=== PATIENT | female | born 1960 | race Caucasian/White ===

== ENCOUNTER → 2016-03-27 | Outpatient (CLI) | payer SELFPAY ==
[~2016-03-27] MED LIST: AMOXICILLIN500 MG PO; ASPIRIN81 M2 PO; CEPHALEXIN500 MG PO; ENDOCET 5-3251 EACH PO; FISH OIL 1,0001 EAC7 PO; IMDUR30 MG PO; KADIAN30 MG PO; LIDOCAINE20 MG/1 M5 PO; LIPITOR10 MG PO; LISINOPRIL-HCT1 EACH PO; LISINOPRIL2.5 MG PO; METOPROLOL SUCC50 MG PO; MORPHINE SULFAT60 MG PO; MS CONTIN,ORAMO60 MG PO; NAPROSYN500 MG PO; NAPROXEN500 MG PO; NICOTINE PATCH1 EAC2 TD; NITROSTAT0.4 MG SL; NORCO 5/3251 TABLET PO; NORVASC5 MG PO; PEN-VEE K,VEET500 MG PO; PERIDEX1 ML MM; PLAVIX75 MG PO; PREDNISONE20 MG PO; PROVENTIL,2.5 MG/0.5 AEROSOL; SPIRIVA RESPIMAT4 GM IH; ULTRAM50 MG PO
== END | disposition home or self-care (01) ==
LOC: RAD 15:10
DX: J20.9 Acute bronchitis, unspecified (principal); R07.89 Other chest pain
CPT/HCPCS: 71020; 71120

== ENCOUNTER 2016-06-24 03:09 | Emergency (ER) | payer SELFPAY ==
[~2016-06-24] VITALS: Ht 162.6 cm; Wt 94.7 kg
[2016-06-24] MEDS ORDERED: PEN-VEE K,VEET500 MG PO (03:45)
[2016-06-24 04:06] VITALS: BP 123/77
== END 2016-06-24 04:08 | disposition home or self-care (01) ==
LOC: EME 03:09
DX: K05.00 Acute gingivitis, plaque induced (principal); K04.7 Periapical abscess without sinus
CPT/HCPCS: 99281; 99283

== ENCOUNTER 2016-07-24 16:02 | Emergency (ER) | payer SELFPAY ==
[~2016-07-24] VITALS: Ht 165.1 cm; Wt 93.8 kg
[2016-07-24] MEDS ORDERED: CLEOCIN300 MG PO (17:39)
[2016-07-24 18:01] VITALS: BP 115/81
== END 2016-07-24 18:01 | disposition home or self-care (01) ==
LOC: EME 16:02 → EXP 17:45
DX: K08.89 Other specified disorders of teeth and supporting structures (principal); F17.200 Nicotine dependence, unspecified, uncomplicated; I10 Essential (primary) hypertension; I25.2 Old myocardial infarction; Z79.82 Long term (current) use of aspirin; Z79.02 Long term (current) use of antithrombotics/antiplatelets
CPT/HCPCS: 99281; 99283

== ENCOUNTER 2016-07-29 01:02 | Emergency (ER) | payer SELFPAY ==
[~2016-07-29] VITALS: Ht 162.6 cm; Wt 94.4 kg
[~2016-07-29 01:02] MED LIST changes: +CLEOCIN300 MG PO
[2016-07-29 02:30] VITALS: BP 106/74
== END 2016-07-29 02:31 | disposition home or self-care (01) ==
LOC: EME 01:02
PROC: 3E0T3BZ Introduction of Anesthetic Agent into Peripheral Nerves and Plexi, Percutaneous Approach (ICD-10-PCS; principal; 2016-07-29)
DX: K08.89 Other specified disorders of teeth and supporting structures (principal); Z79.891 Long term (current) use of opiate analgesic; Z79.82 Long term (current) use of aspirin; Z79.02 Long term (current) use of antithrombotics/antiplatelets; F17.200 Nicotine dependence, unspecified, uncomplicated
CPT/HCPCS: 99281; 99283

== ENCOUNTER 2016-07-30 21:25 | Emergency (ER) | payer SELFPAY ==
[~2016-07-30] VITALS: Ht 162.6 cm; Wt 93.0 kg
[2016-07-30 22:37] VITALS: BP 103/73
== END 2016-07-30 22:37 | disposition home or self-care (01) ==
LOC: EME 21:25
PROC: 3E0T3BZ Introduction of Anesthetic Agent into Peripheral Nerves and Plexi, Percutaneous Approach (ICD-10-PCS; principal; 2016-07-30)
DX: K08.89 Other specified disorders of teeth and supporting structures (principal)
CPT/HCPCS: 99281; 99283

== ENCOUNTER 2016-08-09 00:51 | Emergency (ER) | payer SELFPAY ==
[~2016-08-09] VITALS: Ht 162.6 cm; Wt 95.3 kg
[2016-08-09] MEDS ORDERED: NORVASC10 MG PO (01:08)
[2016-08-09 02:13] VITALS: BP 114/72
== END 2016-08-09 02:13 | disposition home or self-care (01) ==
LOC: EME 00:51
DX: K08.89 Other specified disorders of teeth and supporting structures (principal); G89.29 Other chronic pain
CPT/HCPCS: 99281; 99283; J3010

== ENCOUNTER 2016-08-24 15:49 | Emergency (ER) | payer SELFPAY ==
[~2016-08-24] VITALS: Ht 162.6 cm; Wt 93.7 kg
[~2016-08-24 15:49] MED LIST changes: +NORVASC10 MG PO
[2016-08-24 18:00] LABS: EOSINOPHIL (%) 1.9 % (0-5); EOSINOPHIL COUNT 0.1 K/uL (0-0.3); HEMATOCRIT 39.2 % (36.0-46.0); IMMATURE GRANULOCYTE (%) 0.3 % (0.0-0.7); INSTRUMENT ABS NEUTROPHIL CT 4.7 K/uL; LYMPHOCYTE COUNT 1.7 K/uL (1.0-2.8); MCHC 31.9 G/DL (30.0-36.0); MCV 81.7 FL (83-99); MEAN PLAT.VOLUME 9.7 uM^3 (9.5-12.4); MONOCYTE (%) 3.7 % (3-12); MONOCYTE COUNT 0.3 K/uL (0-0.8); NEUTROPHIL (%) 69.3 % (45-76); NEUTROPHIL COUNT 4.7 K/uL (1.8-6.4); PLATELET COUNT 273 K/uL (156-360); RBC DIS.WIDTH-CV 14.7 % (11.8-14.6); RBC DIS.WIDTH-SD 43.5 % (39-53); WHITE BLOOD COUNT 6.8 K/uL (4.1-10.2)
[2016-08-24 18:31] LABS: CHLORIDE 107 mEq/L (99-109); POTASSIUM 4.3 mEq/L (3.7-5.4); SODIUM 139 mEq/L (136-147)
[2016-08-24 18:33] LABS: GLUCOSE 86 mg/dL (70-99)
[2016-08-24 18:34] LABS: ANION GAP 7 MEQ/L (2-14)
[2016-08-24 18:35] LABS: TOTAL BILIRUBIN 0.2 mg/dL (0.0-1.0)
[2016-08-24 18:37] LABS: ALKALINE PHOSPHATASE 98 IU/L (3-129); GFR ESTIMATE (CALCULATED) > 59 mL/min/
[2016-08-24 18:38] LABS: UREA NITROGEN (BUN) 8 mg/dL (9-23)
[2016-08-24 18:40] LABS: LIPASE 30 U/L (1.0-51.0)
[2016-08-24 18:44] LABS: TROP-I INTERPRETATION NEGATIVE; TROPONIN-I < 0.01 ng/mL (0.0-0.30)
[2016-08-24 20:05] LABS: ADD MIUA? NO; BILIRUBIN NEGATIVE; BLOOD NEGATIVE; COLOR STRAW ((YELLOW)); GLUCOSE (STRIP) NEGATIVE; KETONES NEGATIVE; LEUKOCYTES NEGATIVE; NITRITE NEGATIVE; PROTEIN (STRIP) NEGATIVE; SPECIFIC GRAVITY 1.002 (1.000-1.030); UCUL ADDED? NO; UROBILINOGEN 0.2 MG/DL (0.2-1.0)
[2016-08-24 21:46] LABS: TROP-I INTERPRETATION NEGATIVE; TROPONIN-I < 0.01 ng/mL (0.0-0.30)
[2016-08-24 22:40] VITALS: BP 150/75
== END 2016-08-24 22:41 | disposition home or self-care (01) ==
LOC: EME 15:49
PROVIDERS: Emergency Medicine
DX: R07.9 Chest pain, unspecified (principal); N83.201 Unspecified ovarian cyst, right side; R91.1 Solitary pulmonary nodule; F17.200 Nicotine dependence, unspecified, uncomplicated; E78.5 Hyperlipidemia, unspecified; I10 Essential (primary) hypertension; I25.2 Old myocardial infarction
CPT/HCPCS: 71010; 74176; 80053; 81003; 83690; 84484; 85025; 93005; 99281; 99285; J3010; J7030

== ENCOUNTER → 2016-09-08 | Outpatient (CLI) | payer SELFPAY | END | disposition home or self-care (01) | LOC: RAD 09-02 14:00 | DX: R91.1 Solitary pulmonary nodule (principal) | CPT/HCPCS: 71260; 76856 ==

== ENCOUNTER → 2016-11-14 | Outpatient (CLI) | payer SELFPAY | END | disposition home or self-care (01) | LOC: RAD 11-13 14:00 | DX: N83.291 Other ovarian cyst, right side (principal) | CPT/HCPCS: 76856 ==

== ENCOUNTER 2016-12-03 14:54 | Inpatient (IN) | payer OTHER ==
[~2016-12-03] VITALS: Ht 170.2 cm; Wt 97.7 kg
[~2016-12-03 14:54] MED LIST changes: -LISINOPRIL-HCT1 EACH PO; +ZESTORETIC 20-1 EAC1 PO
[2016-12-03] MEDS ORDERED: NEXIUM 24HR20 M2 PO (15:51)
[2016-12-03] MEDS ORDERED: XANAX0.25 MG PO (15:51)
[2016-12-03] MEDS ORDERED: NORCO 7.5/321 TABLET PO (15:53)
[2016-12-03] MEDS ORDERED: GUMMI BEAR MUL1 EACH PO (15:54)
[2016-12-03] MEDS ORDERED: CRESTOR5 MG PO ×2 (15:54→15:55)
[2016-12-03] MEDS ORDERED: ASPIRIN325 MG PO (15:59)
[2016-12-24 10:39] VITALS: BP 115/65
[2016-12-24 11:04] LABS: AMPHETAMINES QUANT VALUE 0 NG/ML; BARBITUATES QUANT VALUE 0 NG/ML; BENZODIAZEPINES, URINE SCREEN POSITIVE (200 ng/mL); MARIJUANA QUANT VALUE 0 NG/ML; PHENCYCLIDINE QUANT VALUE 0 NG/ML
[2016-12-24 16:25] VITALS: BP 132/73
[2016-12-24 19:00] VITALS: BP 105/62
[2016-12-24 22:00] VITALS: BP 101/57
[2016-12-25 03:13] VITALS: BP 110/61
[2016-12-25 06:35] LABS: HEMATOCRIT 30.3 % (36.0-46.0); MCH 25.1 PG (29.0-34.0); MCHC 30.7 G/DL (30.0-36.0); MCV 81.9 FL (83-99); MEAN PLAT.VOLUME 9.6 uM^3 (9.5-12.4); PLATELET COUNT 251 K/uL (156-360); RBC DIS.WIDTH-CV 14.7 % (11.8-14.6); RBC DIS.WIDTH-SD 44.2 % (39-53); WHITE BLOOD COUNT 11.3 K/uL (4.1-10.2)
[2016-12-25 07:00] LABS: ANION GAP 7 MEQ/L (2-14); CHLORIDE 100 MEQ/L (99-109); GFR ESTIMATE (CALCULATED) > 59 mL/min/; GLUCOSE 111 mg/dL (70-99); POTASSIUM 5.1 MEQ/L (3.7-5.4); SAMPLE HEMOLYSIS CHECK 0; SAMPLE ICTERIC CHECK 0; SAMPLE LIPEMIA CHECK 0; SODIUM 134 MEQ/L (136-147); UREA NITROGEN (BUN) 17 mg/dL (9-23)
[2016-12-25 07:21] VITALS: BP 114/67
[2016-12-25 11:03] VITALS: BP 154/67
[2016-12-25] MEDS ORDERED: CHROMAGEN,1 CAPSULE PO (11:35)
[2016-12-25] MEDS ORDERED: IBUPROFEN800 MG PO (11:36)
== END 2016-12-25 12:17 | disposition home or self-care (01) | DRG 743 ==
LOC: 2SOUTH 14:54 → ENRESERV 12-04 21:05 → CANRESERV 12-05 07:06 → 2SOUTH 12-05 07:30 → ENRESERV 12-23 21:53 → 2SOUTH 12-24 10:02 → ENRESERV 12-24 14:29 → 2EAST 12-24 16:23
PROVIDERS: Obstetrics & Gynecology Obstetrics
DX: N83.201 Unspecified ovarian cyst, right side (principal); F17.200 Nicotine dependence, unspecified, uncomplicated; F41.9 Anxiety disorder, unspecified; J44.9 Chronic obstructive pulmonary disease, unspecified; I25.10 Atherosclerotic heart disease of native coronary artery without angina pectoris; K21.9 Gastro-esophageal reflux disease without esophagitis; E78.2 Mixed hyperlipidemia; I10 Essential (primary) hypertension; G89.29 Other chronic pain; M17.10 Unilateral primary osteoarthritis, unspecified knee; I25.2 Old myocardial infarction; I70.1 Atherosclerosis of renal artery; M47.816 Spondylosis without myelopathy or radiculopathy, lumbar region
CPT/HCPCS: 36415; 80048; 80053; 80306 90; 84702; 85025; 85027; 86850; 86900; 86901; 88108; 88305; 88331; J0131; J0690; J1100; J1170; J1885; J2250; J2405; J2710; J2765; J3010; J7120

== ENCOUNTER → 2017-09-02 | Outpatient (CLI) | payer OTHER ==
[~2017-09-02] MED LIST changes: +ASPIRIN325 MG PO; +CHROMAGEN,1 CAPSULE PO; +CRESTOR5 MG PO; +GUMMI BEAR MUL1 EACH PO; +IBUPROFEN800 MG PO; +NEXIUM 24HR20 M2 PO; +NORCO 7.5/321 TABLET PO; +XANAX0.25 MG PO
== END | disposition home or self-care (01) ==
LOC: RAD 12:43
DX: M48.061 Spinal stenosis, lumbar region without neurogenic claudication (principal); M51.27 Other intervertebral disc displacement, lumbosacral region; M51.36 Other intervertebral disc degeneration, lumbar region; M46.97 Unspecified inflammatory spondylopathy, lumbosacral region; R93.7 Abnormal findings on diagnostic imaging of other parts of musculoskeletal system
CPT/HCPCS: 72131

== ENCOUNTER → 2017-09-30 | Outpatient (CLI) | payer OTHER ==
[~2017-09-30] VITALS: Ht 162.6 cm; Wt 90.7 kg
[~2017-09-30] MED LIST changes: +MS CONTIN,ORAMO30 MG PO; -MS CONTIN,ORAMO60 MG PO
== END | disposition home or self-care (01) ==
LOC: AMB 09:22
DX: R13.10 Dysphagia, unspecified (principal); K29.70 Gastritis, unspecified, without bleeding; K21.9 Gastro-esophageal reflux disease without esophagitis; I25.10 Atherosclerotic heart disease of native coronary artery without angina pectoris; G89.29 Other chronic pain; M54.5 Low back pain; J44.9 Chronic obstructive pulmonary disease, unspecified; I25.2 Old myocardial infarction; Z95.5 Presence of coronary angioplasty implant and graft; Z79.02 Long term (current) use of antithrombotics/antiplatelets; F17.200 Nicotine dependence, unspecified, uncomplicated; Z79.82 Long term (current) use of aspirin; Z80.8 Family history of malignant neoplasm of other organs or systems; Z82.49 Family history of ischemic heart disease and other diseases of the circulatory system
CPT/HCPCS: 88305; 88342 TC; J2250